=== PATIENT | male | born 1960 | race Caucasian/White ===

== ENCOUNTER 2016-07-30 05:22 | Emergency (ER) | payer SELFPAY ==
[2016-07-30 04:52] LABS: BASOPHILS 0.1 %; BASOPHILS ABSOLUTE 0.02 10/3/uL (0.0-0.16); EOSINOPHILS 0.4 %; EOSINOPHILS ABSOLUTE 0.06 10/3/uL (0.0-0.53); HEMATOCRIT 40.3 % (40.0-51.0); HEMOGLOBIN 13.1 g/dL (13.6-17.8); IMMATURE GRANULOCYTES 0.3 %; IMMATURE GRANULOCYTES ABSOLUTE 0.04 10/3/uL (0.0-0.11); LYMPHOCYTES 15.7 %; LYMPHOCYTES ABSOLUTE 2.17 10/3/uL (0.67-4.30); MEAN CORPUS HGB CONC 32.5 g/dL (32.0-36.0); MEAN CORPUSCULAR HEMOGLOB 27.8 pg (26.0-34.0); MEAN CORPUSCULAR VOLUME 85.6 fL (80-100); MEAN PLATELET VOLUME 9.8 fL (9.2-13.0); MONOCYTES 8.9 %; MONOCYTES ABSOLUTE 1.23 10/3/uL (0.21-1.20); NEUTROPHILS 74.6 %; NEUTROPHILS ABSOLUTE 10.26 10/3/uL (2.02-8.40); PLATELET COUNT 213 10/3/uL (150-400); RBC DISTRIBUTION WIDTH 13.5 % (12.0-16.0); RED CELL COUNT 4.71 10/6/uL (4.7-6.1)
[2016-07-30 04:53] LABS: ER CBC TAT 0 Hrs 14 Mins; MANUAL DIFF NO %; WHITE BLOOD CELLS 13.8 10/3/uL (4.5-10.5)
[2016-07-30 05:07] LABS: A/G RATIO 0.7 (0.7-1.9); BUN (BLOOD UREA NITROGEN) 15 MG/DL (6-23); CALCIUM, SERUM 8.5 MG/DL (8.5-10.4); CHLORIDE, SERUM 103 MMOL/L (96-112); CO2 (CARBON DIOXIDE) 28 MMOL/L (24-34); CREATININE 1.23 MG/DL (0.70-1.30); GFR AFRICAN AMERICAN 76 ML/MIN (>=60); GFR NON AFRICAN AMERICAN 65 ML/MIN (>=60); GLOBULIN 4.5 G/DL (2.5-4.1); POTASSIUM, SERUM 3.6 MMOL/L (3.5-5.3); SGOT(AST) 16 U/L (5-40); SGPT(ALT) 20 U/L (5-65); SODIUM, SERUM 140 MMOL/L (135-148); TOTAL PROTEIN 7.5 G/DL (6.0-8.5)
[2016-07-30 05:10] LABS: LACTATE 1.4 MMOL/L (0.3-2.4)
[2016-07-30 05:11] LABS: ALKALINE PHOSPHATASE 71 U/L (45-117); GLUCOSE, SERUM 122 MG/DL (60-99); TOTAL BILIRUBIN 1.2 MG/DL (0-1.2)
[~2016-07-30 05:22] MED LIST: ASABAYER PO; EFFIENT10 PO; LIPITOR80 MG PO; LOP25 PO; MOBIC7.5 PO; OXYCONTIN30 MG; ZANAFLEX 4 MG TA4 MG
[2016-07-30 05:29] LABS: INFLUENZA A SCREEN NEGATIVE (NEGATIVE); INFLUENZA B SCREEN NEGATIVE (NEGATIVE)
[2016-07-30 05:45] LABS: PROCALCITONIN 0.14 ng/mL (<0.5)
[2016-07-30 06:19] LABS: ASCORBIC ACID (UR NOT ORDER) NEG (NEG); BILIRUBIN, URINE NEGATIVE (NEG); ER URINALYSIS TAT 0 Hrs 00 Mins; KETONE, URINE NEGATIVE (NEG); LEUKOCYTE ESTERASE(NOT OR NEG (NEG); NITRITE (URINE) NEG (NEG); WBC (NOT ORDERED) (RFLEX) 2 (0-5)
[2016-07-30 06:50] LABS: AMPHETAMINES (NOT ORD) POS (NEG); BARBITURATES (NOT ORDERED NEG (NEG); BENZODIAZEPINES (NOT ORD) NEG (NEG); CANNABINOIDS (THC) POS (NEG); COCAINE (NOT ORDERED) NEG (NEG); OPIATES POS (NEG); PHENCYCLIDINE(PCP) NEG (NEG); TRICYCLICS NEG (NEG)
[2016-07-31] MEDS ORDERED: ASAB PO (22:40)
[2016-07-31] MEDS ORDERED: ATEN25 PO (22:44)
[2016-07-31] MEDS ORDERED: PERCOCET 10/3251 TAB PO (22:50)
== END 2016-07-30 07:02 | disposition home or self-care (01) ==
LOC: ER 05:22
PROVIDERS: Nurse Practitioner; Specialist
DX: R50.9 Fever, unspecified (principal); F17.200 Nicotine dependence, unspecified, uncomplicated; Z87.442 Personal history of urinary calculi; Z95.5 Presence of coronary angioplasty implant and graft; Z79.82 Long term (current) use of aspirin; Z79.899 Other long term (current) drug therapy
CPT/HCPCS: 71020; 80053; 80305; 81001; 83605; 84145; 85025; 87040; 87077; 87150; 87186; 87804; 93005; 99284; A9270-GY

== ENCOUNTER 2016-07-31 22:37 | Inpatient (IN) | payer SELFPAY ==
--- NOTE | ~2016-07-31 | CN ---
Consultation Report [facility] [address] [place]. [address] NAME: PATY BYERS : 58 STATUS : DIS IN PAT#: [id number] AGE: 55 ADM/REG DATE : 07/31/16 MR#: [id number] REPORT SERV DATE: 08/26/16 DICTATED BY: KENDALL RANGEL DATE: 08/25/16 REPORT STATUS : Draft TRANSCRIBED BY: ARYA DATE: 08/25/16 CARDIOLOGY CONSULTATION. DATE OF CONSULTATION: 07/30/2016 INDICATION: Referral for EDWIN in a patient with history of endocarditis and recurrent symptoms suggestive of endocarditis. The patient admits to recent IV drug abuse. 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 The patient was recently at a methadone clinic and got tired of it and basically he wanted to try it on his own. He quit methadone and subsequently "fell off the wagon," and started using IV drugs again. He started using heroin IV, and he last used it approximately a week before admission. He subsequently developed nausea, generalized body aches and pains, and feeling of impending doom. He has a history of endocarditis and thought his symptoms mirrored the prior symptoms, so he came to the hospital. He does have bacteremia. PAST MEDICAL HISTORY: Includes tobacco use, marijuana use, narcotic addiction oxycodone and "whatever he can get from the street on a regular basis." FAMILY HISTORY: Noncontributory. MEDICATIONS: Medications at Home: See MAR. REVIEW OF SYSTEMS: A 10-point system review was performed. I discussed the case with Dr. Mcdaniel by telephone, and I examined the patient at the bedside. General Survey: Pleasant gentleman, in no distress, cooperative. He understands the nature of my visit today. PHYSICAL EXAMINATION: GENERAL: Pleasant, no distress. HEENT: Unremarkable. No meningismus. NECK: Soft and supple. LUNGS: Relatively clear. HEART: Sounds are regular. ABDOMEN: Soft. EXTREMITIES: No edema. No definite stigmata for endocarditis visualized. HOSPITAL DATA: BUN [place] [address], platelets 208,000, INR 1.2. Urinalysis unremarkable. Consultation Report [address] [place] [address] NAME: PATY BYERS : 58 STATUS : DIS IN PAT#: [id number] AGE: 55 ADM/REG DATE : 07/31/16 MR#: [id number] REPORT SERV DATE: 08/26/16 DICTATED BY: KENDALL RANGEL. DATE: 08/25/16 REPORT STATUS : Draft TRANSCRIBED BY: ARYA DATE: 08/25/16 IMPRESSION: Generalized weakness associated with bacteremia and history of prior endocarditis and recent IV drug abuse. PLAN: Proceed with transesophageal echocardiogram on 08/04/2016. Thank you for allowing me to participate in his care. REY/ARYA Kendall Rangel D.O. / [id number]
--- NOTE | ~2016-07-31 | DS ---
Discharge Summary [facility] [address] [place]. [address] NAME: PATY BYERS : 58 STATUS : DIS IN PAT#: [id number] AGE: 55 ADM/REG DATE : 07/31/16 MR#: [id number] REPORT SERV DATE: 08/07/16 DICTATED BY: ANGELLA KNUTSON DATE: 08/06/16 REPORT STATUS : Draft TRANSCRIBED BY: MODL DATE: 08/06/16 ADMISSION DATE: 07/31/2016 DISCHARGE DATE: 08/06/2016 DISCHARGE DIAGNOSES: 1. Staphylococcus warneri bacteremia. 2. IV drug use. Was recently on methadone, self stopped, and reverted back to heroin. 3. Coronary artery disease with stent history, followed with Dr. Rangel. 4. Dyspepsia. 5. Chronic pain. CONSULTATIONS: Dr. Mcdaniel and Dr. Rangel. DISCHARGE DISPOSITION: Home with Home Health. DISCHARGE MEDICATIONS: Aspirin 81 mg one tab p.o. daily, atenolol 25 mg one tab p.o. every morning, Ancef 2 g IV q.8 stop date 08/28, Percocet 10/325 one tab p.o. q.6 hours #28 given, MS Contin 15 mg one tab p.o. b.i.d. #14 given. HOSPITAL COURSE: Please see H and P for complete details. HISTORY OF PRESENT ILLNESS: Briefly, Mr. Byers is a 55-year-old male with past medical history of IV drug use with prior endocarditis in the past, who has been in remission and was under the care of Methadone Clinic up until approximately two to three weeks prior to this admission, in which the patient was somewhat tired of having side effects from methadone and decided to stop using methadone; however, the patient began to have withdrawal-type symptoms and reverted back to isolated usage of heroin; however, the patient began to have difficulty-type symptoms and was concerned of having reinfection with endocarditis. The patient was evaluated, was positive for staphylococcal warneri species. ID was consulted and Cardiology, Dr. Rangel, was consulted. The patient underwent echocardiogram including EDWIN, which noted for abnormal transesophageal echo depicting abnormalities particularly in the right coronary cusp of the aortic valve, moderate-to- severe aortic regurgitation, minimal mitral regurgitation, and well-preserved LV function. The patient was changed to Ancef 2 g IV, was having clinical response. The patient had resolution of leukocytosis on arrival. The patient was counseled by multiple team members through multidisciplinary team about drug cessation. The patient is aware and reports that he will be stopping any of these forms, as he does not want to hurt his body or himself. He has actually already established contact with [facility] for further assistance to help continue on his trend to stop any types of drug medications. The patient was recommended further cardiac study as an outpatient once acute setting has improved. He was concerned for aortic valve endocarditis, which will be followed with Dr. Rangel and Dr. Mcdaniel as an outpatient for followup cardiac workup after appropriate antibiotic treatment has been completed for reassessment. The patient is aware of this, is also in the process of continuing and is aware of how to complete IV medications. Due to patient's chronic pain withdrawal history, the patient was requiring scheduled oxycodone inpatient and was on morphine, was placed on continued scheduled oxycodone understanding for interim along with Discharge Summary [address] [address] NAME: PATY BYERS : 58 STATUS : DIS IN PAT#: [id number] AGE: 55 ADM/REG DATE : 07/31/16 MR#: [id number] REPORT SERV DATE: 08/07/16 DICTATED BY: ANGELLA KNUTSON DATE: 08/06/16 REPORT STATUS : Draft TRANSCRIBED BY: ARYA DATE: 08/06/16 MS Contin. The patient was fairly functional after having pain control. Risk Management was also consulted by Case Management for discussion due to risk behavior, which the patient adamantly denies that he will go back to those type settings. PICC line has also been placed prior to discharge for infusion of Ancef for particular antibiotic course and treatment. DDN/MODL Angella Knutson MD / [id number] CC: Angella Knutson MD
--- NOTE | ~2016-07-31 | CN ---
Consultation Report [facility] [address] [place]. [address] NAME: PATY BYERS : 58 STATUS : ADM IN PAT#: [id number] AGE: 55 ADM/REG DATE : 07/31/16 MR#: [id number] REPORT SERV DATE: 08/01/16 DICTATED BY: MIRNA MCDANIEL DATE: 08/01/16 REPORT STATUS : Draft TRANSCRIBED BY: MODL DATE: 08/01/16 INFECTIOUS DISEASE CONSULT DATE OF CONSULTATION: 08/01/2016 REFERRING PHYSICIAN: Dr. Romano. REASON FOR CONSULTATION: Positive blood cultures. HISTORY OF PRESENT ILLNESS: This is a 55-year-old man with a past history of endocarditis in 2010 in the setting of injection drug use. He was hospitalized at [facility] and completed a six-week course of IV antibiotics at the [facility]. He is unsure what the pathogen was and which valve was involved. However, he does say that he has had a heart murmur since then. The patient entered a methadone treatment unit and was in that unit until some weeks ago and he started injecting drugs again. Over the past four or five days, he has had some fevers up to 101 and nausea and myalgias. He was concerned he might have endocarditis and therefore came to the emergency department on 07/30, where he had a white blood cell count of 13.8. Blood cultures were obtained and he was sent out. He was given an antibiotic prescription, but did not get it filled and was called back to the emergency department yesterday when his 07/30 blood cultures returned positive, both sets for gram- positive cocci in clusters, which have been presumptively identified as coagulase-negative Staph. The patient and his significant other state that the blood cultures drawn on 07/30 were from a single stick in the emergency department, but he had repeat blood cultures yesterday from two separate sticks it appears, prior to antibiotics as best I can assess. He was then started on vancomycin and repeat blood cultures are negative to date. The patient denies any other specific symptoms. No chest pain or shortness of breath. PAST MEDICAL HISTORY: As outlined above. In addition, he has a history of a coronary artery disease and underwent stent placements in the setting of angina back in 03/[address] Rasmussen. Echocardiogram at that time showed there was evidence of aortic valve regurgitation, but it was difficult to quantify. It appeared to be mild. The patient also has a history of nephrolithiasis. ALLERGIES: NO KNOWN DRUG ALLERGIES. OUTPATIENT MEDICATIONS: Included aspirin, Tenormin, and Percocets. He does admit to using various recreational drugs, but only heroin intravenously. SOCIAL HISTORY: The patient told me he was a nonsmoker, although the history and physical says he does smoke including marijuana. Living with significant other who is here in the room with him. FAMILY HISTORY: Noncontributory. Review of systems otherwise negative except as noted above. Consultation Report [facility] [address] [place]. [address] NAME: PATY BYERS : 58 STATUS : ADM IN [facility]#: [id number] AGE: 55 ADM/REG DATE : 07/31/16 MR#: [id number] REPORT SERV DATE: 08/01/16 DICTATED BY: MIRNA MCDANIEL DATE: 08/01/16 REPORT STATUS : Draft TRANSCRIBED BY: ARYA DATE: 08/01/16 PHYSICAL EXAMINATION: VITAL SIGNS: The patient has had a maximum temperature of 100.3, blood pressure 124/76, pulse 81, it was as high as 118, respiratory rate 16, it was as high as 23, weight 99 kg. GENERAL: He is alert, pleasant, no acute distress. HEAD AND NECK: Conjunctivae without petechiae. The oral cavity is clear. NECK: Supple. LUNGS: Clear to auscultation throughout. CARDIAC: Regular rate and rhythm. Normal S1, S2 with a 2/6 diastolic murmur loudest along the left sternal border and also heard at the aortic area. ABDOMEN: Soft, nontender. No masses appreciated. EXTREMITIES: Without stigmata of endocarditis. He does have sites on both arms where he has injected, but I do not see evidence of an abscess or thrombophlebitis. LABORATORY STUDIES: White blood cell count today at 13.6, hemoglobin 12.3, and platelets 175. Creatinine 1.03. Liver function tests on admission, normal. Albumin 3.0. Cultures as mentioned. Chest x-ray, negative. IMPRESSION: Probable endocarditis secondary to injection drug use. This situation is a little bit clouded by the fact that the bacteria appear to be coagulase-negative Staph and the 07/30 blood cultures may have been drawn from just one stick and therefore the coagulase negative Staph could just be contaminants. However obviously, he is at high risk for endocarditis and there was no other likely source of his febrile illness. He does have a diastolic murmur. On his echocardiogram in 2013, aortic insufficiency was noted, but it appeared to be mild. He does not have evidence for congestive heart failure. PLAN: 1. We will continue vancomycin pending final blood culture results and specifically await the results of the repeat blood cultures from yesterday. 2. Transthoracic echocardiogram was done this morning and reading is pending. If that is negative, he will need a EDWIN. MARTIN/ARYA Mirna Mcdaniel M.D. / [id number] CC: Lolita Marin M.D.
--- NOTE | ~2016-07-31 | TEE ---
Transesophageal Echocardiogram [address] [place]. [address] NAME: PATY BYERS : 58 STATUS : ADM IN PAT#: [id number] AGE: 55 ADM/REG DATE : 07/31/16 MR#: [id number] REPORT SERV DATE: 08/04/16 DICTATED BY: KENDALL RANGEL DATE: 08/04/16 REPORT STATUS : Draft TRANSCRIBED BY: ARYA DATE: 08/04/16 TRANSESOPHAGEAL ECHOCARDIOGRAM REASON FOR ADMISSION: Previous endocarditis, evaluate for possible recurrence. PREVIOUS HISTORY: This 55-year-old IV drug abuser who presents with generalized weakness and bacteremia, currently IV drug abusing, history of endocarditis in 2010, presented with leukocytosis, previous coronary artery disease with stents, has chronic pain syndrome and nephrolithiasis. Consent from patient. COMPLICATIONS: None. Study performed at the short stay unit with [facility]. Transthoracic echo interpreted by Dr. Kim on 08/01/2016 was interpreted to have normal left ventricular systolic function with an estimated ejection fraction of 55%-60%, normal RV chamber size and systolic function, [id number] AR, pressure half-time measurement was 323 msec. PROCEDURE: After time-out was called, IV conscious sedation was provided by [facility]. The patient was under continuous monitoring of blood pressure, EKG, telemetry, and O2 saturation. A padded bite block was used. Face mask was used. The esophagus was easily intubated with the omniplane EDWIN probe. Very good images were obtained. Orders were implemented and the patient was given the results and recommendations. FINDINGS: 1. The patient appears to be in sinus rhythm. a. The aortic valve appears trileaflet. There is definite irregularity and echodensity reflected primarily in the right coronary cusp. There is a very broad- based prominent aortic valve regurgitant jet with off-axis measurement pressure half time below 300 msec, approximately 290 msec and has a correspondingly dense Doppler envelope. The other leaflets appeared grossly intact. The annulus was unremarkable. 2. The mitral valve is fairly thin and pliable with minimal regurgitation noted eccentrically. 3. The tricuspid valve is grossly normal, minimal TR. 4. Pulmonary valve not well seen. a. Atria: Both atria appear grossly normal. No spontaneous echo contrast vegetation. The anterior atrial septum was intact. No definite septal defect. Color Doppler fails to demonstrate any intraatrial communication. The agitated saline "bubble contrast" fails to demonstrate any right to left flow. Left atrial appendage is fairly small and unremarkable. b. Both ventricles appear grossly normal in size and systolic function. Interventricular septum is intact. c. Visualized segments of the aorta appear to demonstrate some mild intimal thickening only, perhaps minimal plaque, although it is unremarkable. No spontaneous Transesophageal Echocardiogram [address] [address] NAME: PATY BYERS : 58 STATUS : ADM IN PAT#: [id number] AGE: 55 ADM/REG DATE : 07/31/16 MR#: [id number] REPORT SERV DATE: 08/04/16 DICTATED BY: KENDALL RANGEL. DATE: 08/04/16 REPORT STATUS : Draft TRANSCRIBED BY: ARYA DATE: 08/04/16 echocontrast. CONCLUSION: 1. ABNORMAL TRANSESOPHAGEAL ECHOCARDIOGRAM DEPICTING ABNORMALITY PARTICULARLY AT THE RIGHT CORONARY CUSP OF THE AORTIC VALVE WITH [id number] AORTIC REGURGITATION PRESENT. 2. MINIMAL MITRAL REGURGITATION. 3. A WELL-PRESERVED LEFT VENTRICULAR SYSTOLIC FUNCTION. PLAN: We will discuss with Dr. Paco Mcdaniel. The patient is cautioned against use of IV drugs. At a minimum, routine surveillance of the valve should be considered in approximately three- six months. REY/ARYA Kendall Rangel D.O. / [id number] CC: Billy Walls MD
--- NOTE | ~2016-07-31 | HP ---
History And Physical [place] [facility] [place]. [address] NAME: PATY BYERS : 58 STATUS : ADM IN PAT#: [id number] AGE: 55 ADM/REG DATE : 07/31/16 MR#: [id number] REPORT SERV DATE: 08/01/16 DICTATED BY: NATHANAEL GUSMAN DATE: 07/31/16 REPORT STATUS : Draft TRANSCRIBED BY: MODL DATE: 07/31/16 DATE OF ADMISSION: 07/31/2016 CHIEF COMPLAINT: Generalized weakness and nausea. HISTORY OF PRESENT ILLNESS: This is a 55-year-old male with history of infective endocarditis in 2010 following intravenous drug use, history of coronary artery disease with stents and nephrolithiasis in the past, who presents to the emergency room at [facility] with the above-mentioned complaint. History is obtained from the patient and reviewing data available on the [employer] system. According to Mr. Byers, he was on methadone for a long time and recently got tired of that and wanted to try it on his own. He decided to quit methadone and subsequently fell off the wagon and started using intravenous drugs. He started using heroin intravenously from the street. He says he last used it about a week ago. In the last one week or so, he has been feeling poorly, has some fevers, which he measured up to 101 degrees Fahrenheit. He also had some nausea, generalized body pains, and feeling of doom. He has a history of endocarditis, so he decided to come to the emergency room to be evaluated. This was his last visit, which was 24 hours ago. At that time, blood cultures were drawn and the patient was treated as an outpatient. Today, the patient's blood results returned positive for Staph aureus and the patient was called at home and asked to come back. He presents today with staphylococcal bacteremia and Hospitalist Service is asked to admit him for further evaluation and treatment. At the time of my evaluation, he denied any chest pain, palpitations, or orthopnea. He had no cough, hemoptysis, night sweats, or weight loss. He has not had any recent falls or loss of consciousness. No dizziness, nausea, vomiting, diarrhea, dysuria. He denied any hematemesis, hematochezia, or hematuria. No other history of recent travel or exposures, other than those mentioned above. PAST MEDICAL HISTORY: Significant for history of intravenous drug abuse with heroin, history of endocarditis in 2011 as a result of that, history of coronary artery disease with stent placement, and nephrolithiasis in the past. SOCIAL HISTORY: He smokes. He uses marijuana on a daily basis and uses intravenous drugs as well. He also has hooked on narcotics and he takes Roxicodone and whatever he can get from the street on a regular basis. FAMILY HISTORY: Noncontributory. MEDICATIONS AT HOME: Reviewed by me in the chart today and reordered by me. REVIEW OF SYSTEMS: As in history of present illness. All other systems were reviewed in detail and are quite unremarkable. History And Physical [address] [address] NAME: PATY BYERS : 58 STATUS : ADM IN [facility]#: [id number] AGE: 55 ADM/REG DATE : 07/31/16 MR#: [id number] REPORT SERV DATE: 08/01/16 DICTATED BY: NATHANAEL GUSMAN DATE: 07/31/16 REPORT STATUS : Draft TRANSCRIBED BY: ARYA DATE: 07/31/16 PHYSICAL EXAMINATION: GENERAL: This is a pleasant 55-year-old, not in any acute distress. HEENT: Head is atraumatic, normocephalic. He is alert, awake, oriented to time, place, and person. His pupils are equal, reacting to light and accommodating. External ocular muscles are intact. Membranes are moist and pink. Sclerae are nonicteric. NECK: Supple with no jugular venous distention, lymphadenopathy, or thyromegaly. LUNGS: Clear to auscultation with no wheezes, rubs, or crackles. HEART: Sounds were regular. I could not appreciate any new murmurs. ABDOMEN: Soft, nontender. Bowel sounds are present. EXTREMITIES: Showed no cyanosis, clubbing, or edema. NEUROLOGIC: Grossly intact. No focal sensory or motor deficits. He was able to move all four extremities. Higher functions appeared intact. VITAL SIGNS: Today showed a temperature of 98.5, pulse 80, respirations 18 a minute, blood pressure was 138/68, oxygen saturations were 98%, breathing 2 L of oxygen via nasal cannula. LABORATORY DATA: Reviewed on the [employer] system showed sodium of 138, potassium 3.4, chloride 103, and CO2 of 29. BUN was 12, creatinine was 1.13. Blood glucose was 138. Calcium was 8.1 with magnesium of 2.1. His albumin was 3.0 yesterday. Liver numbers were within normal limits. His lactate today was 1.7. CBC showed a white blood cell count of 15,600, hemoglobin was 13.5 with hematocrit of 41, platelet count was 208,000. Prothrombin time was 14.9 with an INR of 1.2. Influenza A and B were negative yesterday. Urinalysis was grossly unremarkable today. Films of the chest x-ray were reviewed by me on the PACS today and interpreted by me. Per my interpretation, there is normal bony architecture with no cardiomegaly. There were no infiltrates or pleural effusions seen. A 12-lead EKG done in the emergency room was reviewed and interpreted by me. There is sinus rhythm with a rate of 77 per minute. There was first-degree AV block. Again, his lactate was 1.4 today. Procalcitonin was 0.02. Urine drug screen was positive for cannabinoids and opiates. IMPRESSION: 1. Generalized weakness. 2. Bacteremia. 3. Intravenous drug abuse. 4. History of endocarditis in 2010. 5. Leukocytosis. 6. Coronary artery disease with stents. 7. Chronic pain. PLAN: We will admit Mr. Byers to the Hospitalist Service with telemetry. After cultures are drawn, we will start him on empiric IV antibiotics. We will start him on vancomycin and have pharmacy follow future doses. We will consult Infectious Disease to see him in the morning. Meanwhile, we will go ahead and set up an echocardiogram to be done in the morning. We will start him on IV fluids for volume replacement. Check chemistry and CBC in the morning and replace electrolytes as needed as well. He will be placed on unfractionated heparin for DVT prophylaxis while here. I have discussed the above plans with the patient. His questions were answered and he is agreeable to the above recommendations. Hospitalist Service will be following him during his stay here. History And Physical [address] [place]. [address] NAME: PATY BYERS : 58 STATUS : ADM IN [facility]#: [id number] AGE: 55 ADM/REG DATE : 07/31/16 MR#: [id number] REPORT SERV DATE: 08/01/16 DICTATED BY: NATHANAEL GUSMAN DATE: 07/31/16 REPORT STATUS : Draft TRANSCRIBED BY: ARYA DATE: 07/31/16 /ARYA Nathanael Gusman M.D. / [id number] CC: Lolita Marin M.D.
[2016-07-31 19:53] LABS: BASOPHILS 0.2 %; BASOPHILS ABSOLUTE 0.03 10/3/uL (0.0-0.16); EOSINOPHILS 0.5 %; EOSINOPHILS ABSOLUTE 0.08 10/3/uL (0.0-0.53); HEMOGLOBIN 13.5 g/dL (13.6-17.8); IMMATURE GRANULOCYTES 0.3 %; IMMATURE GRANULOCYTES ABSOLUTE 0.05 10/3/uL (0.0-0.11); LYMPHOCYTES 18.2 %; LYMPHOCYTES ABSOLUTE 2.83 10/3/uL (0.67-4.30); MEAN CORPUS HGB CONC 32.9 g/dL (32.0-36.0); MEAN CORPUSCULAR HEMOGLOB 27.9 pg (26.0-34.0); MEAN CORPUSCULAR VOLUME 84.7 fL (80-100); MEAN PLATELET VOLUME 9.8 fL (9.2-13.0); MONOCYTES 5.3 %; MONOCYTES ABSOLUTE 0.82 10/3/uL (0.21-1.20); NEUTROPHILS 75.5 %; NEUTROPHILS ABSOLUTE 11.77 10/3/uL (2.02-8.40); PLATELET COUNT 208 10/3/uL (150-400); RBC DISTRIBUTION WIDTH 13.8 % (12.0-16.0); RED CELL COUNT 4.84 10/6/uL (4.7-6.1); WHITE BLOOD CELLS 15.6 10/3/uL (4.5-10.5)
[2016-07-31 19:59] LABS: MANUAL DIFF NO %
[2016-07-31 20:00] LABS: INTERNATIONAL NORMAL RATI 1.2 UNITS (-); PARTIAL THROMBO TIME 27.4 SEC (22.5-37.2)
[2016-07-31 20:03] LABS: PROTIME (NOT ORD) 14.9 SEC (12.0-14.5)
[2016-07-31 20:13] LABS: BUN (BLOOD UREA NITROGEN) 12 MG/DL (6-23); CALCIUM, SERUM 8.1 MG/DL (8.5-10.4); CHEST PAIN PROFILE TAT 0 Hrs 26 Mins; CHLORIDE, SERUM 103 MMOL/L (96-112); CO2 (CARBON DIOXIDE) 29 MMOL/L (24-34); CREATININE 1.13 MG/DL (0.70-1.30); GFR AFRICAN AMERICAN 84 ML/MIN (>=60); GFR NON AFRICAN AMERICAN 72 ML/MIN (>=60); GLUCOSE, SERUM 138 MG/DL (60-99); POTASSIUM, SERUM 3.4 MMOL/L (3.5-5.3); SODIUM, SERUM 138 MMOL/L (135-148); TROPONIN I <0.02 NG/ML (<0.05)
[2016-07-31 22:02] LABS: WBC (NOT ORDERED) (RFLEX) 0 (0-5)
[2016-07-31 22:07] LABS: ASCORBIC ACID (UR NOT ORDER) NEG (NEG); BILIRUBIN, URINE NEGATIVE (NEG); ER URINALYSIS TAT 0 Hrs 10 Mins; KETONE, URINE NEGATIVE (NEG); LEUKOCYTE ESTERASE(NOT OR NEG (NEG); NITRITE (URINE) NEG (NEG)
[2016-07-31 22:15] LABS: AMPHETAMINES (NOT ORD) NEG (NEG); BARBITURATES (NOT ORDERED NEG (NEG); BENZODIAZEPINES (NOT ORD) NEG (NEG); CANNABINOIDS (THC) POS (NEG); COCAINE (NOT ORDERED) NEG (NEG); OPIATES POS (NEG); PHENCYCLIDINE(PCP) NEG (NEG); TRICYCLICS NEG (NEG)
[2016-07-31 22:19] LABS: ACETAMINOPHEN LEVEL (TYLENOL) < 2.0 MCG/ML (10.0-20.0); ALCOHOL < 10 MG/DL (0); SALICYLATE < 1.7 MG/DL (-)
[2016-07-31 22:26] LABS: PROCALCITONIN 0.06 ng/mL (<0.5)
[2016-07-31 22:30] LABS: LACTATE 1.7 MMOL/L (0.3-2.4)
[2016-07-31] MEDS ORDERED: ASAB PO (22:40)
[2016-07-31] MEDS ORDERED: ATEN25 PO (22:44)
[2016-07-31] MEDS ORDERED: PERCOCET 10/3251 TAB PO (22:50)
[2016-08-01 06:44] LABS: BASOPHILS 0.1 %; BASOPHILS ABSOLUTE 0.02 10/3/uL (0.0-0.16); EOSINOPHILS 0.5 %; EOSINOPHILS ABSOLUTE 0.07 10/3/uL (0.0-0.53); HEMATOCRIT 37.8 % (40.0-51.0); HEMOGLOBIN 12.3 g/dL (13.6-17.8); IMMATURE GRANULOCYTES 0.3 %; IMMATURE GRANULOCYTES ABSOLUTE 0.04 10/3/uL (0.0-0.11); LYMPHOCYTES 20.6 %; MEAN CORPUS HGB CONC 32.5 g/dL (32.0-36.0); MEAN CORPUSCULAR VOLUME 83.1 fL (80-100); MEAN PLATELET VOLUME 9.5 fL (9.2-13.0); MONOCYTES 6.9 %; MONOCYTES ABSOLUTE 0.94 10/3/uL (0.21-1.20); NEUTROPHILS 71.6 %; NEUTROPHILS ABSOLUTE 9.75 10/3/uL (2.02-8.40); PLATELET COUNT 175 10/3/uL (150-400); RBC DISTRIBUTION WIDTH 13.8 % (12.0-16.0); RED CELL COUNT 4.55 10/6/uL (4.7-6.1); WHITE BLOOD CELLS 13.6 10/3/uL (4.5-10.5)
[2016-08-01 06:51] LABS: MANUAL DIFF NO %
[2016-08-01 07:04] LABS: BUN (BLOOD UREA NITROGEN) 13 MG/DL (6-23); CALCIUM, SERUM 7.9 MG/DL (8.5-10.4); CHLORIDE, SERUM 108 MMOL/L (96-112); CO2 (CARBON DIOXIDE) 25 MMOL/L (24-34); CREATININE 1.03 MG/DL (0.70-1.30); GFR AFRICAN AMERICAN 94 ML/MIN (>=60); GFR NON AFRICAN AMERICAN 81 ML/MIN (>=60); GLUCOSE, SERUM 135 MG/DL (60-99); PHOSPHORUS, SERUM 1.7 MG/DL (2.5-4.5); POTASSIUM, SERUM 3.7 MMOL/L (3.5-5.3); SODIUM, SERUM 141 MMOL/L (135-148)
[2016-08-01 07:14] LABS: LACTATE 1.1 MMOL/L (0.3-2.4)
[2016-08-01 15:06] LABS: FREE T4 1.11 NG/DL (0.76-1.46)
[2016-08-01 15:07] LABS: FOLATE 9.9 NG/ML (>5.2)
[2016-08-02 05:17] LABS: BASOPHILS 0.2 %; BASOPHILS ABSOLUTE 0.03 10/3/uL (0.0-0.16); EOSINOPHILS 0.9 %; EOSINOPHILS ABSOLUTE 0.12 10/3/uL (0.0-0.53); HEMATOCRIT 36.7 % (40.0-51.0); HEMOGLOBIN 11.8 g/dL (13.6-17.8); IMMATURE GRANULOCYTES 0.3 %; IMMATURE GRANULOCYTES ABSOLUTE 0.04 10/3/uL (0.0-0.11); LYMPHOCYTES 19.3 %; MEAN CORPUS HGB CONC 32.2 g/dL (32.0-36.0); MEAN CORPUSCULAR HEMOGLOB 27.3 pg (26.0-34.0); MEAN CORPUSCULAR VOLUME 84.8 fL (80-100); MONOCYTES 5.6 %; MONOCYTES ABSOLUTE 0.75 10/3/uL (0.21-1.20); NEUTROPHILS 73.7 %; PLATELET COUNT 173 10/3/uL (150-400); RBC DISTRIBUTION WIDTH 13.9 % (12.0-16.0); RED CELL COUNT 4.33 10/6/uL (4.7-6.1); WHITE BLOOD CELLS 13.4 10/3/uL (4.5-10.5)
[2016-08-02 05:18] LABS: MANUAL DIFF NO %
[2016-08-02 05:37] LABS: A/G RATIO 0.6 (0.7-1.9); ALBUMIN 2.4 G/DL (3.5-5.0); ALKALINE PHOSPHATASE 66 U/L (45-117); BUN (BLOOD UREA NITROGEN) 13 MG/DL (6-23); CALCIUM, SERUM 8.1 MG/DL (8.5-10.4); CHLORIDE, SERUM 109 MMOL/L (96-112); CO2 (CARBON DIOXIDE) 27 MMOL/L (24-34); CREATININE 1.08 MG/DL (0.70-1.30); GFR AFRICAN AMERICAN 88 ML/MIN (>=60); GFR NON AFRICAN AMERICAN 76 ML/MIN (>=60); GLUCOSE, SERUM 115 MG/DL (60-99); PHOSPHORUS, SERUM 3.3 MG/DL (2.5-4.5); POTASSIUM, SERUM 4.4 MMOL/L (3.5-5.3); SGOT(AST) 19 U/L (5-40); SGPT(ALT) 19 U/L (5-65); SODIUM, SERUM 144 MMOL/L (135-148); TOTAL BILIRUBIN 0.3 MG/DL (0-1.2); TOTAL PROTEIN 6.4 G/DL (6.0-8.5)
[2016-08-03 06:51] LABS: BASOPHILS 0.2 %; BASOPHILS ABSOLUTE 0.03 10/3/uL (0.0-0.16); EOSINOPHILS 1.4 %; EOSINOPHILS ABSOLUTE 0.17 10/3/uL (0.0-0.53); HEMATOCRIT 38.5 % (40.0-51.0); HEMOGLOBIN 12.6 g/dL (13.6-17.8); IMMATURE GRANULOCYTES 0.3 %; IMMATURE GRANULOCYTES ABSOLUTE 0.04 10/3/uL (0.0-0.11); LYMPHOCYTES 11.8 %; LYMPHOCYTES ABSOLUTE 1.44 10/3/uL (0.67-4.30); MEAN CORPUS HGB CONC 32.7 g/dL (32.0-36.0); MEAN CORPUSCULAR HEMOGLOB 27.8 pg (26.0-34.0); MEAN CORPUSCULAR VOLUME 84.8 fL (80-100); MEAN PLATELET VOLUME 10.4 fL (9.2-13.0); MONOCYTES 5.1 %; MONOCYTES ABSOLUTE 0.62 10/3/uL (0.21-1.20); NEUTROPHILS 81.2 %; PLATELET COUNT 199 10/3/uL (150-400); RBC DISTRIBUTION WIDTH 13.9 % (12.0-16.0); RED CELL COUNT 4.54 10/6/uL (4.7-6.1); WHITE BLOOD CELLS 12.2 10/3/uL (4.5-10.5)
[2016-08-03 06:52] LABS: MANUAL DIFF NO %
[2016-08-03 07:02] LABS: BUN (BLOOD UREA NITROGEN) 12 MG/DL (6-23); CALCIUM, SERUM 8.3 MG/DL (8.5-10.4); CHLORIDE, SERUM 107 MMOL/L (96-112); CO2 (CARBON DIOXIDE) 26 MMOL/L (24-34); CREATININE 1.17 MG/DL (0.70-1.30); GFR AFRICAN AMERICAN 80 ML/MIN (>=60); GFR NON AFRICAN AMERICAN 69 ML/MIN (>=60); GLUCOSE, SERUM 118 MG/DL (60-99); POTASSIUM, SERUM 3.9 MMOL/L (3.5-5.3); SODIUM, SERUM 141 MMOL/L (135-148)
[2016-08-04 06:19] LABS: BASOPHILS 0.2 %; BASOPHILS ABSOLUTE 0.02 10/3/uL (0.0-0.16); EOSINOPHILS 1.2 %; EOSINOPHILS ABSOLUTE 0.14 10/3/uL (0.0-0.53); HEMATOCRIT 38.9 % (40.0-51.0); HEMOGLOBIN 12.7 g/dL (13.6-17.8); IMMATURE GRANULOCYTES 0.3 %; IMMATURE GRANULOCYTES ABSOLUTE 0.04 10/3/uL (0.0-0.11); LYMPHOCYTES 11.9 %; LYMPHOCYTES ABSOLUTE 1.37 10/3/uL (0.67-4.30); MEAN CORPUS HGB CONC 32.6 g/dL (32.0-36.0); MEAN CORPUSCULAR HEMOGLOB 27.7 pg (26.0-34.0); MEAN CORPUSCULAR VOLUME 84.9 fL (80-100); MEAN PLATELET VOLUME 11.2 fL (9.2-13.0); MONOCYTES 6.2 %; MONOCYTES ABSOLUTE 0.72 10/3/uL (0.21-1.20); NEUTROPHILS 80.2 %; NEUTROPHILS ABSOLUTE 9.27 10/3/uL (2.02-8.40); PLATELET COUNT 235 10/3/uL (150-400); RED CELL COUNT 4.58 10/6/uL (4.7-6.1); WHITE BLOOD CELLS 11.6 10/3/uL (4.5-10.5)
[2016-08-04 06:23] LABS: MANUAL DIFF NO %
[2016-08-04 07:20] LABS: BUN (BLOOD UREA NITROGEN) 9 MG/DL (6-23); CALCIUM, SERUM 8.2 MG/DL (8.5-10.4); CHLORIDE, SERUM 107 MMOL/L (96-112); CO2 (CARBON DIOXIDE) 24 MMOL/L (24-34); CREATININE 0.98 MG/DL (0.70-1.30); GFR AFRICAN AMERICAN 99 ML/MIN (>=60); GFR NON AFRICAN AMERICAN 86 ML/MIN (>=60); GLUCOSE, SERUM 102 MG/DL (60-99); SODIUM, SERUM 140 MMOL/L (135-148)
[2016-08-05 05:15] LABS: BASOPHILS 0.2 %; BASOPHILS ABSOLUTE 0.03 10/3/uL (0.0-0.16); EOSINOPHILS 0.9 %; EOSINOPHILS ABSOLUTE 0.11 10/3/uL (0.0-0.53); HEMATOCRIT 39.1 % (40.0-51.0); HEMOGLOBIN 12.5 g/dL (13.6-17.8); IMMATURE GRANULOCYTES 0.5 %; IMMATURE GRANULOCYTES ABSOLUTE 0.06 10/3/uL (0.0-0.11); LYMPHOCYTES 13.1 %; LYMPHOCYTES ABSOLUTE 1.64 10/3/uL (0.67-4.30); MEAN CORPUSCULAR HEMOGLOB 27.2 pg (26.0-34.0); MEAN CORPUSCULAR VOLUME 85.2 fL (80-100); MEAN PLATELET VOLUME 10.5 fL (9.2-13.0); MONOCYTES 6.3 %; MONOCYTES ABSOLUTE 0.79 10/3/uL (0.21-1.20); PLATELET COUNT 222 10/3/uL (150-400); RBC DISTRIBUTION WIDTH 14.4 % (12.0-16.0); RED CELL COUNT 4.59 10/6/uL (4.7-6.1); WHITE BLOOD CELLS 12.5 10/3/uL (4.5-10.5)
[2016-08-05 05:21] LABS: MANUAL DIFF NO %
[2016-08-05 05:31] LABS: CALCIUM, SERUM 8.5 MG/DL (8.5-10.4); CHLORIDE, SERUM 107 MMOL/L (96-112); CO2 (CARBON DIOXIDE) 27 MMOL/L (24-34); CREATININE 1.07 MG/DL (0.70-1.30); GFR AFRICAN AMERICAN 89 ML/MIN (>=60); GFR NON AFRICAN AMERICAN 77 ML/MIN (>=60); GLUCOSE, SERUM 107 MG/DL (60-99); POTASSIUM, SERUM 4.1 MMOL/L (3.5-5.3); SODIUM, SERUM 139 MMOL/L (135-148)
[2016-08-05 05:33] LABS: BUN (BLOOD UREA NITROGEN) 13 MG/DL (6-23)
[2016-08-05 05:35] LABS: INTERNATIONAL NORMAL RATI 1.1 UNITS (-); PROTIME (NOT ORD) 13.6 SEC (12.0-14.5)
[2016-08-06 05:47] LABS: HEMATOCRIT 39.3 % (40.0-51.0); HEMOGLOBIN 12.9 g/dL (13.6-17.8); MEAN CORPUS HGB CONC 32.8 g/dL (32.0-36.0); MEAN CORPUSCULAR HEMOGLOB 27.8 pg (26.0-34.0); MEAN CORPUSCULAR VOLUME 84.7 fL (80-100); MEAN PLATELET VOLUME 10.2 fL (9.2-13.0); PLATELET COUNT 206 10/3/uL (150-400); RBC DISTRIBUTION WIDTH 14.2 % (12.0-16.0); RED CELL COUNT 4.64 10/6/uL (4.7-6.1); WHITE BLOOD CELLS 10.4 10/3/uL (4.5-10.5)
[2016-08-06 05:50] LABS: MANUAL DIFF YES %
[2016-08-06 07:18] LABS: BAND NEUTROPHILS 1 %; LYMPHOCYTES 13 %; LYMPHOCYTES ABSOLUTE (CALC) 1.35 10/3/uL (0.67-4.30); MONOCYTES 10 %; MONOCYTES ABSOLUTE (CALC) 1.04 10/3/uL (0.21-1.20); NEUTROPHILS ABSOLUTE (CALC) 8.01 10/3/uL (2.02-8.40); PLATELET ESTIMATE ADQ (ADEQUATE); RBC MORPHOLOGY NORM (NORMAL); SEGMENTED NEUTROPHIL (0) 76 %; TOTAL NUCLEATED CELLS 100
[2016-08-06] MEDS ORDERED: CEFAZ1 IM (11:46)
[2016-08-06] MEDS ORDERED: PERCOCET 10/3251 TAB PO (11:47)
[2016-08-06] MEDS ORDERED: MSCONT15 PO (11:48)
== END 2016-08-06 16:51 | disposition home health service (06) | DRG 290 ==
LOC: ER 22:37 → 5NO 23:27
PROVIDERS: Emergency Medicine; Internal Medicine; Nurse Practitioner; Student in an Organized Health Care Education/Training Program
PROC: B246ZZ4 Ultrasonography of Right and Left Heart, Transesophageal (ICD-10-PCS; principal; 2016-08-05)
PROC: 02HV33Z Insertion of Infusion Device into Superior Vena Cava, Percutaneous Approach (ICD-10-PCS; 2016-08-06)
PROC: 4A02X4A Measurement of Cardiac Electrical Activity, Guidance, External Approach (ICD-10-PCS; 2016-08-06)
DX: I33.0 Acute and subacute infective endocarditis (principal); F11.10 Opioid abuse, uncomplicated; R53.1 Weakness; I25.10 Atherosclerotic heart disease of native coronary artery without angina pectoris; G89.29 Other chronic pain; B95.8 Unspecified staphylococcus as the cause of diseases classified elsewhere; Z95.5 Presence of coronary angioplasty implant and graft; I35.0 Nonrheumatic aortic (valve) stenosis; F12.10 Cannabis abuse, uncomplicated; F17.210 Nicotine dependence, cigarettes, uncomplicated
CPT/HCPCS: 36569; 78452; 80048; 80053; 80305; 80307; 81001; 82607; 82746; 83605; 83735; 84100; 84145; 84439; 84443; 84484; 85025; 85610; 85730; 87040; 90686; 93005; 93017; 93306; 93312; 93320; 93325; 94640; 96374; 99285; A9270-GY; A9502; C1751; G0008; J0690; J3370